=== PATIENT | female | born 1985 | race Caucasian/White ===

== ENCOUNTER 2018-09-29 05:07 | Emergency (ER) | payer MEDICAID ==
[~2018-09-29] VITALS: Ht 170.2 cm; Wt 81.0 kg
[2018-09-29 05:12] VITALS: BP 89/61
== END 2018-09-29 06:37 | disposition home or self-care (01) ==
LOC: ED 05:28
DX: J45.41 Moderate persistent asthma with (acute) exacerbation (principal); K02.9 Dental caries, unspecified
CPT/HCPCS: 71046; 93005; 94640; 99283; J7512

== ENCOUNTER 2019-04-22 11:06 | Emergency (ER) | payer MEDICAID ==
[~2019-04-22] VITALS: Ht 175.3 cm; Wt 90.0 kg
--- NOTE | 2019-04-22 11:28 | NUR ---
ASSUMED CARE OF PT AT THIS TIME FROM LOBBY. AMBULATORY TO ROOM WITH STEADY GAIT, PT WEARING MASK PER THEIR REQUEST FOR DRY NON-PRODUCTIVE COUGH. 33 Y/O F PRESENTS STATING "I'M HAVING AN ASTHMA FLARE, SHORT OF BREATH SINCE LAST NIGHT, I RAN OUT OF MY INHALERS 2 MONTHS AGO, GOT NEW PRESCRIPTION FOR ALBUTEROL, QVAR, AND COMBIVENT BUT [facility] DIDN'T ACCEPT MY INSURANCE AND WOULDN'T GIVE ME THE SCRIPT BACK TO TAKE ANYWHERE ELSE." PT WITH EXPIRATORY WHEEZING THROUGHTOUT, MODERATE WORK OF BREATHING, NO ACCESSORY MUSCLE USE. PT ABLE TO SPEAK IN FULL SENTENCES BUT "MAKES ME COUGH FREQUENTLY BECAUSE I CAN'T CATCH BREATH." CONT PULSE OX, BP, CARDIAC MONITORS APPLIED. VSS. SR ON MONITOR. DENIES CP OR ANY PAIN, N/V/D, FEVERS OR CHILLS. CALL LIGHT IN REACH. FALL PRECAUTIONS IN PLACE. SIDE RAILS UPX2. A&OX4. AWAITING EVAL BY ERP
[2019-04-22] MEDS ORDERED: BECL10.62 INH (11:39)
[2019-04-22] MEDS ORDERED: ALBU8.5H8 INH (11:39)
--- NOTE | 2019-04-22 11:40 | NUR ---
RT PAGED PER ERP FOR BREATHING TREATMENT
--- NOTE | 2019-04-22 11:42 | NUR ---
DR. VILLALTA AT BEDSIDE FOR EVALUATION
--- NOTE | 2019-04-22 11:51 | NUR ---
PT MEDICATED NOTED PER EMAR. PT TO RAD FOR CHEST XRAY
--- NOTE | 2019-04-22 12:10 | NUR ---
PT BACK FROM RAD, NAD NOTED. RESP NOW REGULAR AND UNLABORED, PULSE OX 94%. PT CONTINUES SPEAKING IN FULL SENTENCES, NO ACCESSORY MUSCLE USE, MILD WORK OF BREATHING WITH WHEEZING THROUGHOUT, AWAITING BREATHING TX FROM RT. SR ON MONITOR. VSS. FALL PRECAUTIONS IN PLACE. CALL LIGHT IN REACH
[2019-04-22] MEDS ORDERED: ALBUTEROL/IPRATROPIUM 2.5MG/0.5MG, 3 ML ONE (12:17)
--- NOTE | 2019-04-22 12:21 | NUR ---
RT AT BEDSIDE FOR BREATHING TREATMENT
[2019-04-22] MEDS: ALBUTEROL/IPRATROPIUM 2.5MG/0.5MG, 3 ML NPPB SCH (12:25)
--- NOTE | 2019-04-22 12:36 | NUR ---
PT REPORTS "NOT FEELING MUCH DIFFERENT" S/P BREATHING TREATMENT, WHEEZING STILL AUSCULTATED THROUGHOUT. DISCUSSED WITH DR. VILLALTA, AWARE, NO NEW ORDERS RECEIVED, TO CONTINUE TO MONITOR PT. VSS. SR ON MONITOR. PULSE OX 98% RA. FALL PRECUATIONS IN PLACE
--- NOTE | 2019-04-22 13:12 | NUR ---
PT REPORTS "FEELING SO MUCH BETTER, SUCH A RELIEF." WHEEZING STILL PRESENT IN ALL LUNGS HER, POSTERIOR AND ANTERIOR. RIGHT LUNG WHEEZING IMPROVED MORE THAN LEFT. ST ON MONITOR. VSS. DENIES ANY PAIN AND NEED TO USE RESTROOM. CALL LIGHT IN REACH. PT UP FOR RECHECK.
--- NOTE | 2019-04-22 13:55 | NUR ---
PT AWAITING RECHECK
--- NOTE | 2019-04-22 14:27 | NUR ---
DR. VILLALTA AT BEDSIDE FOR RECHECK, AWAITING DISCHARGE PAPERS FROM ERP.
[2019-04-22 14:32] VITALS: BP 126/76
== END 2019-04-22 14:34 | disposition home or self-care (01) ==
LOC: ED 14:15
DX: J45.901 Unspecified asthma with (acute) exacerbation (principal)
CPT/HCPCS: 71046; 94640; 99284; J7512

== ENCOUNTER 2019-05-30 03:59 | Emergency (ER) | payer MEDICAID ==
[~2019-05-30] VITALS: Ht 170.2 cm; Wt 88.8 kg
[~2019-05-30 03:59] MED LIST: ALBU8.5H8 INH; BECL10.62 INH
[2019-05-30 04:04] VITALS: BP 119/73
== END 2019-05-30 04:37 | disposition home or self-care (01) ==
LOC: ED 04:18
DX: J45.31 Mild persistent asthma with (acute) exacerbation (principal)
CPT/HCPCS: 99283

== ENCOUNTER 2019-07-20 21:52 | Emergency (ER) | payer MEDICAID, OTHER ==
[2019-07-20 21:58] VITALS: BP 125/82
[2019-07-20] MEDS ORDERED: ALBUTEROL/IPRATROPIUM 2.5MG/0.5MG, 3 ML ONE (22:24)
[2019-07-20] MEDS ORDERED: ALBUTEROL/IPRATROPIUM 2.5MG/0.5MG, 3 ML NPPB ONE (22:30)
[2019-07-20] MEDS ORDERED: PLEASE ENTER ALLERGIES MC SCH (22:30)
== END 2019-07-20 23:33 | disposition home or self-care (01) ==
LOC: MERGE 23:00 → ED 23:00
DX: J45.21 Mild intermittent asthma with (acute) exacerbation (principal); R94.31 Abnormal electrocardiogram [ECG] [EKG]
CPT/HCPCS: 71045; 93005; 94640; 99283; J7512